=== PATIENT | female | born 1945 | race Caucasian/White ===

== ENCOUNTER → 2021-05-02 13:41 | Outpatient (CLI) | payer MEDICARE, SELFPAY ==
--- NOTE | ~2021-05-02 | MM_ITS ---
EXAMINATION: MM screening chang BI w moise HISTORY: Screening mammogram, family history of breast cancer in her mother and sister. TECHNIQUE: Craniocaudal and mediolateral oblique 3-D tomosynthesis images were obtained and synthetic 2-D images were generated. CAD analysis was submitted and interpreted. COMPARISON: No prior mammogram is available for comparison at this institution. BREAST PARENCHYMAL COMPOSITION: There are scattered areas of fibroglandular density. FINDINGS: There is no evidence of suspicious mass, calcification, or architectural distortion to sugg est malignancy in either breast. IMPRESSION: 1. No mammographic evidence of malignancy. 2. Recommend routine screening mammography in one year. BI-RADS Category 1: Negative Reviewed, dictated and finalized at location A.
== END ==
PROVIDERS: PCP Registered Nurse; Visit Provider Registered Nurse
DX: Z12.31 Encounter for screening mammogram for malignant neoplasm of breast (principal)
CPT/HCPCS: 77063; 77067

== ENCOUNTER 2021-07-11 02:53 | Day surgery (SDC) | payer MEDICARE, SELFPAY ==
[2021-07-08 17:48] VITALS: BMI 30.8
[2021-07-11] VITALS (9 sets, daily range): BP systolic 115–142; BP diastolic 59–75; PULSE 54–73; RESP 16–20; TEMP 36.2–36.3; O2SAT 90–97; BMI 30.7
--- NOTE | 2021-07-11 08:35 | SUR.PREOP ---
ARRIVES VIA WC W/ SON AT SIDE TO [facility] 4 FOR SCHEDULED LHC W/ DR. NÚÑEZ. A&OX3, DENIES PAIN OR SOB. HAS HX OF POLIO; LEFT LEG SMALLER THAN RIGHT LEG. STATES DOES USE CANE OR WALKER WHEN WALKING LONG DISTANCES, BUT CAN WALK SHORT DISTANCE WITHOUT AIDE. ORIENTED TO ROOM, PLAN OF CARE, PROCEDURE. IV STARTED, LABS SENT, VS OBTAINED, CONSENT SIGNED, PULSES MARKED, SKIN PREPPED. WILL CONTINUE TO MONITOR.
[2021-07-11 09:13] LABS: Basophils Absolute Auto 0.1 K/mm3 (0.0-0.1); Basophils Percent Auto 0.6 % (0.2-1.2); Eosinophils Absolute Auto 0.1 K/mm3 (0-0.3); Eosinophils Percent Auto 0.7 % (0-4.4); Hematocrit 37.8 % (37.0-47.0); Hemoglobin 12.6 g/dL (12.0-15.0); Immature Granulocyte Absolute 0.03 K/mm3 (0.00-0.031); Immature Granulocyte Percent A 0.4 % (0-0.5); Lymphocytes Absolute Auto 2.89 K/mm3 (0.9-3.2); Lymphocytes Percent Auto 34.5 % (18.3-44.2); Mean Corpuscular HGB Conc 33.3 g/dl (32-36); Mean Corpuscular Hemoglobin 33.2 pg (26-34); Mean Corpuscular Volume 99.5 fl (80-100); Mean Platelet Volume 10.7 fl (7.4-10.4); Monocytes Absolute Auto 0.5 K/mm3 (0.1-0.6); Monocytes Percent Auto 6.4 % (2.6-8.5); Neutrophils Absolute Auto 4.8 K/mm3 (1.3-6.7); Neutrophils Percent Auto 57.4 % (45.5-73.1); Platelet Count Result 251 k/mm3 (150-375); Red Cell Distribution Width 13.1 % (11.5-14.5); White Blood Count 8.4 K/mm3 (4.5-10.0)
[2021-07-11 09:17] LABS: Anion Gap 8 mmol/L (8-16); Blood Urea Nitrogen 22 mg/dL (7-17); Calcium 9.1 mg/dL (8.4-10.2); Carbon Dioxide 25 mmol/L (22-30); Chloride 103 mmol/L (98-107); Estimated CRCL calculation 107 ml/min; Estimated Glomerular Filt Rate > 60; Glucose 109 mg/dL (65-110); Potassium 3.8 mmol/L (3.4-5.0); Sodium 136 mmol/L (137-145)
--- NOTE | 2021-07-11 11:37 | WPDMODSED ---
Moderate Sedation Note-Pt Data Patient Data Diagnosis: coronary artery disease with previous PCI to RCA Present Complaint: intermittent chest pain Procedure to be performed/Plan: follow-up left heart catheterization Allergies Allergy/AdvReac Type Severity Reaction Status Date / Time No Known Allergies Allergy Verified 07/08/21 16:55 Home Medications Medication Instructions Recorded Confirmed Type Caltrate 600 plus D 2 tablet PO DAILY 07/08/21 07/08/21 History acetaminophen 1,000 mg PO Q12H 07/08/21 07/08/21 History alendronate 70 mg PO WEEKLY 07/08/21 07/08/21 History aspirin [Ecotrin Low Strength] 81 mg PO DAILY 07/08/21 07/11/21 History cholecalciferol (vitamin D3) 50 mcg PO DAILY 07/08/21 07/08/21 History docusate sodium [Colace] 100 mg PO HS 07/08/21 07/08/21 History ezetimibe 10 mg PO DAILY 07/08/21 07/08/21 History fesoterodine [Toviaz] 4 mg PO HS 07/08/21 07/08/21 History fluticasone propionate 2 spray INTRANASAL DAILY 07/08/21 07/08/21 History lojszeqfywo-uuosa-bxr-vit C-Mn 1 tablet PO BID 07/08/21 07/08/21 History ibuprofen 400 mg PO Q12H 07/08/21 07/08/21 History isosorbide mononitrate 30 mg PO HS 07/08/21 07/08/21 History loratadine [Allergy Relief 10 mg PO DAILY 07/08/21 07/08/21 History (loratadine)] magnesium 200 mg PO BID 07/08/21 07/08/21 History metoprolol succinate [Toprol XL] 25 mg PO DAILY 07/08/21 07/11/21 History multivitamin with minerals [All 1 tablet PO DAILY 07/08/21 07/08/21 History Purpose Multivitamin-Min] potassium chloride [Micro-K 10] 10 meq PO BID 07/08/21 07/08/21 History simvastatin [Zocor] 40 mg PO HS 07/08/21 07/08/21 History sumatriptan succinate [Imitrex] 100 mg PO Q2H PRN MDD 200MG 07/08/21 07/08/21 History Current Medications: Active Medications Sodium Chloride (Normal Saline Iv) 500 mls @ 100 mls/hr IV CONT .Q5H [facility] Sedation/Anesthesia: No previous sedation/anesthesia problems (including family history). [facility] Social History Social History Smoking status: Never smoker Alcohol intake: never Substance use: never Substance use type: does not use Living arrangements: assisted living Additional living arrangements comments: LIVES W/ AT [facility] Gender identity (if verbalized by the patient): Female Spiritual care concerns: No Mod Sed Physical Exam Physical Exam Pre Procedural Exam: Normal: Throat, Airway, Lungs, Heart Size, Heart Rate, Heart Rhythm, Neuro Exam and Extremities and Variation: Appearance ( obese white female no distress) Hours since solid foods: 12 Hours since liquid intake: 12 Mallampati Classification: class II Internal Medicine - PN: Obj Da Vital Signs Vital Signs: Vital Signs - 24 hr 07/11/21 08:45 Temperature 36.2 C L Pulse Rate 73 Respiratory Rate 20 Blood Pressure 130/71 Pulse Oximetry 95 Meds/Results Medications: Active Medications Generic Name Dose Route Start Last Admin Trade Name Freq PRN Reason Stop Dose Admin Sodium Chloride 500 mls @ 100 mls/hr 07/11/21 08:30 Normal Saline Iv IV CONT .Q5H [facility] Labs CBC & Chem 7: 07/11/21 08:55 07/11/21 08:55 Labs: Laboratory Results - last 24 hr 07/11/21 07/11/21 08:55 08:55 WBC 8.4 RBC 3.80 L Hgb 12.6 Hct 37.8 MCV 99.5 MCH 33.2 MCHC 33.3 RDW 13.1 Plt Count 251 MPV 10.7 H Immature Gran % (Auto) 0.4 Neut % (Auto) 57.4 Lymph % (Auto) 34.5 Barry % (Auto) 6.4 Eos % (Auto) 0.7 Baso % (Auto) 0.6 Lymph # (Auto) 2.89 Barry # (Auto) 0.5 Eos # (Auto) 0.1 Baso # (Auto) 0.1 Abs Immat Gran (auto) 0.03 Absolute Neuts (auto) 4.8 Absolute Nucleated RBC 0.0 Nucleated RBC % 0.0 Sodium 136 L Potassium 3.8 Chloride 103 Carbon Dioxide 25 Anion Gap 8 BUN 22 H Creatinine 0.40 L Estim Creat Clear Calc 107 Estimated GFR > 60 Glucose 109 Calcium 9.1 ASA Classification/Sedation ASA Classification/Sedation ASA Class: II Emergent:
--- NOTE | 2021-07-11 12:04 | P.PCNCC_ITS ---
Cardiac Cath Procedure Note Date of procedure:: 07/11/21 Performing physician:: Rusty Simmons MD Indication:: coronary artery disease with previous RCA stent recurrent chest pain Brief clinical history:: this is a 76-year-old woman who underwent PCI with stenting of her right coronary artery several years ago at another hospital. Her recreational assistant has referred her for a follow-up angiogram because of recurrent chest pain suspicious for ischemia. Procedure Procedure performed:: Left ventriculography coronary angiography Angio-Seal to right femoral artery Sedation/Medication given:: fentanyl 50 mg Versed 2 mg case start time 11:40 a.m. case end time 12:01 p.m. sedation provided by Romian Corado RN, trained observer Access site:: right femoral artery Estimated blood loss:: 10-15 cc Procedure note:: patient was brought to the cardiac catheterization lab in the postabsorptive state the right femoral triangle was prepared and draped in the usual fashion. 1% lidocaine was infiltrated into the puncture site. The femoral artery was punctured and no using the modified Seldinger technique a 5 [place] vascular sheath was placed. After this left heart catheterization was carried out I used a 5 [place] Citizen angled pigtail catheter to inject the left ventriculogram in the ORTIZ projection and to assess left-sided hemodynamics. Following this pigtail catheter was removed and a 5 [place] FL4 catheter was used to engage inject the left coronary artery in multiple projections. After this I used a 5 [place] Citizen JR4 catheter to engage inject the right coronary artery. The cineangiograms were the case was terminated. An angiogram was done of the femoral artery through the sheath after an Angio-Seal device was deployed with a good hemostatic result. There were no procedural complications of the procedure was well tolerated. Findings:: Hemodynamics: Central aortic pressure was 142 over 66 left ventricle 142/0 end-diastolic 16 there is no gradient on pullback across the aortic valve. Left ventricle: The LV is normal in size all segments contract well the global ejection fraction of visually estimated to be 60-65%. The left main coronary artery is nicely patent the LAD is a medium caliber artery extending down to the apex the LAD is smooth and angiographically unremarkable the circumflex is a medium caliber vessel giving rise to the marginal branch of circumflex is angiographically smooth and normal in appearance right coronary artery is medium in caliber and dominant to the posterior circulation there is visible stent material in the proximal segment of the RCA. The entire vessel is widely patent with good flow there is no loss of lumen in the stent this segment and no evidence of atherosclerosis in the remainder of the vessel. Conclusion:: 1. Coronary artery disease with previous RCA stent which appears to be nicely patent patient is nicely revascularized 2. current symptoms are not related to myocardial ischemia based on these findings 3. normal left ventricular systolic function Rusty Simmons MD FACC
--- NOTE | 2021-07-11 16:20 | SUR.PHASEII ---
DISCHARGE INSTRUCTIONS GIVEN AND REVIEWED W/ PT. QUESTIONS ANSWERED. VOICES UNDERSTANDING OF ALL. R. GROIN SITE REMAINS SOFT, NONTENDER. NO BLEEDING OR HEMATOMA NOTED. GAUZE AND TEGADERM DRESSING C/D/I. R. PEDAL PULSE PALP STRONG. DISCHARGED HOME, OUT VIA WC TO SON'S WAITING CAR, WITH ALL PERSONAL BELONGINGS AND DISCHARGE PACKET. VOICES NO C/O. NO DISTRESS NOTED.
== END 2021-07-11 16:20 | disposition home or self-care (01) ==
PROVIDERS: PCP Registered Nurse; Visit Provider Specialist
PROC: 4A023N7 Measurement of Cardiac Sampling and Pressure, Left Heart, Percutaneous Approach (ICD-10-PCS; CPT 93452; principal; 2021-07-11 10:00)
DX: I25.118 Atherosclerotic heart disease of native coronary artery with other forms of angina pectoris (principal); I10 Essential (primary) hypertension; E78.5 Hyperlipidemia, unspecified; G14 Postpolio syndrome; Z95.5 Presence of coronary angioplasty implant and graft
CPT/HCPCS: 36415; 80048; 85025; 93458; C1760; C1887; C1894; G0269; J1644; J2250; J3010; J7040

== ENCOUNTER → 2022-05-05 10:02 | Outpatient (CLI) | payer MEDICARE, SELFPAY ==
--- NOTE | ~2022-05-05 | DEXA_ITS ---
Bone Density Report Name: DINESH MENDOZA Age: 77 Sex: Female Ethnicity: White Date of : 1945 Indication: postmenopausal; screening for osteoporosis; parental hip fracture; height loss; Referring Provider: Kathleen, Janessa Study: Bone densitometry was performed. Exam Date: May 05, 2022 Accession number: [id number] Bone Density: Region BMD T-score Z-score Classification AP Spine (L1-L4) 1.104 0.5 2.9 Normal Femoral Neck (Left) 0.657 -1.7 0.4 Osteopenia Total Hip (Left) 0.743 -1.6 0.1 Osteopenia Femoral Neck (Right) 0.727 -1.1 1.0 Osteopenia Total Hip (Right) 0.859 -0.7 1.1 Normal Total Hip Mean 0.801 -1.2 0.6 Osteopenia World Health Organization criteria for BMD impression classify patients as: Normal (T-score at or above -1.0), Osteopenia (T-score between -1.0 and -2.5), or Osteoporosis (T-score at or below -2.5). 10-year Fracture Risk: FRAX not reported because: Treated for osteoporosis Clinical Information Provided by Patient: Parent has had a hip fracture Is being treated for osteoporosis Has used the following medications: Fosamax (i.e. alendronate), Vitamin D, Calcium, MTV Patient maximum height was 66.2 Menopause Age: 57 No regular weight bearing exercise Drinks caffeinated beverages Onset of menses at age 14 Number of children 2 Impression: The patient has low bone mass, based on the Left Femoral Neck T-score. The patient has risk factors, including: parental hip fracture. Discussion: It is important to ask patients whether they are taking their medications and to encourage continued and appropriate compliance with their osteoporosis therapies to reduce fracture risk. It is also important to review their risk factors and encourage appropriate calcium and vitamin D intakes, exercise, fall prevention and other lifestyle measures. Follow-Up: Consider a repeat BMD and Vertebral Fracture Assessment (VFA) exam in 2 years or sooner if medically necessary, to reassess this patient's status. Reported by: ELVER on 05/05/2022 10:58:00 AM. Reviewed, dictated and finalized at location AChelsy ULRICH
--- NOTE | ~2022-05-05 | MM_ITS ---
EXAMINATION: MM screening chang BI w moise HISTORY: Screening TECHNIQUE: Craniocaudal and mediolateral oblique 3-D tomosynthesis images were obtained and synthetic 2-D images were generated. CAD analysis was submitted and interpreted. COMPARISON: 05/02/2021 BREAST PARENCHYMAL COMPOSITION: There are scattered areas of fibroglandular density. FINDINGS: There is no evidence of suspicious mass, calcification, or architectural distortion to sugg est malignancy in either breast. There has been no suspicious interval change. IMPRESSION: 1. No mammographic evidence of malignancy. 2. Recommend routine screening mammography in one year. BI-RADS Category 1: Negative Reviewed, dictated and finalized at location A.
== END ==
PROVIDERS: PCP Registered Nurse; Visit Provider Registered Nurse
DX: Z12.31 Encounter for screening mammogram for malignant neoplasm of breast (principal); M81.0 Age-related osteoporosis without current pathological fracture; M85.852 Other specified disorders of bone density and structure, left thigh; M85.851 Other specified disorders of bone density and structure, right thigh
CPT/HCPCS: 77063; 77067; 77080

== ENCOUNTER 2024-02-15 11:47 | Observation (INO) | payer OTHER, SELFPAY ==
[2024-02-15] VITALS (11 sets, daily range): BP systolic 126–169; BP diastolic 53–71; PULSE 56–78; RESP 16–20; TEMP 36.5–37.2; O2SAT 93–98; BMI 37.4
--- NOTE | ~2024-02-15 | XR_ITS ---
EXAMINATION: XR chest 2V DATE: 02/15/2024 13:04 INDICATION: Chest pain. TECHNIQUE: Frontal and lateral views of the chest were obtained. COMPARISON: None. FINDINGS: There is mild atelectasis at the lung bases. No pleural effusion or pneumothorax. The heart size is normal. There are surgical clips in the abdomen. IMPRESSION: 1. Mild atelectasis at the lung bases. Reviewed, dictated and finalized at location A.
--- NOTE | ~2024-02-15 | US_ITS ---
EXAMINATION: US venous doppler [facility] DATE: 02/15/2024 16:19 INDICATION: leg swelling . TECHNIQUE: Grayscale images without and with compression and Doppler images of the left lower extremi ty veins were obtained. COMPARISON: None FINDINGS: The left common femoral vein, profunda (deep) femoral vein, femoral vein, popliteal vein, peroneal v ein, posterior tibial veins, gastrocnemius vein, and greater saphenous vein are patent. IMPRESSION: Patent left lower extremity veins. No evidence of deep venous thrombosis. Reviewed, dictated and finalized at location K.
--- NOTE | 2024-02-15 11:48 | ECG_ITS ---
Measurements Intervals [place] Rate: 57 P: 13 ID: [id number] QRS: 0 QRSD: 95 T: 64 QT: 391 QTc: 381 Interpretive Statements SINUS BRADYCARDIA NONSPECIFIC ST & T-WAVE ABNORMALITY- HIGH LATERAL LEADS BORDERLINE ECG NO PREVIOUS ECG AVAILABLE FOR COMPARISON Electronically Signed On 02-15-2024 12:45:17 CDT by Javy Muller D.O.
--- NOTE | 2024-02-15 12:35 | ED.CHESTPAIN ---
HPI - Chest Pain General Chief Complaint: Chest Pain Stated Complaint: chest pains Time Seen by Provider: 02/15/24 11:56 History of Present Illness HPI narrative: 78-year-old female presenting to the emergency department for evaluation of chest pain that radiated to her neck and back. Patient states she was at rest when the pain started. Pain lasted approximately 30 minutes. Patient did take 2 nitro and the symptoms resolved. Patient does have history of coronary disease and has to stents with the most recent stent being placed in 2016 patient states her most recent cardiac catheterization was in 2020. Patient does have some swelling of her lower extremity worse on the left and she states this is not new for her. Related Data Home Medications Medication Instructions Recorded Confirmed Caltrate 600 plus D 2 tablet PO DAILY 07/08/21 07/08/21 acetaminophen 500 mg tablet 1,000 mg PO Q12H 07/08/21 07/08/21 alendronate 70 mg tablet 70 mg PO WEEKLY 07/08/21 07/08/21 aspirin 81 mg tablet,delayed 81 mg PO DAILY 07/08/21 07/11/21 release (Ecotrin Low Strength) cholecalciferol (vitamin D3) 50 50 mcg PO DAILY 07/08/21 07/08/21 mcg (2,000 unit) tablet docusate sodium 100 mg capsule 100 mg PO HS 07/08/21 07/08/21 (Colace) ezetimibe 10 mg tablet 10 mg PO DAILY 07/08/21 07/08/21 fesoterodine 4 mg tablet,extended 4 mg PO HS 07/08/21 07/08/21 release 24 hr (Toviaz) fluticasone propionate 50 2 spray intranasal DAILY 07/08/21 07/08/21 mcg/actuation nasal spray,suspension dzmpedvruzu-gelpc-ywi-vit C-Mn 500 1 tablet PO BID 07/08/21 07/08/21 mg-400 mg-166.6 mg tablet ibuprofen 400 mg tablet 400 mg PO Q12H 07/08/21 07/08/21 isosorbide mononitrate 30 mg 30 mg PO HS 07/08/21 07/08/21 tablet,extended release 24 hr loratadine 10 mg tablet (Allergy 10 mg PO DAILY 07/08/21 07/08/21 Relief (loratadine)) magnesium 200 mg tablet 200 mg PO BID 07/08/21 07/08/21 metoprolol succinate 25 mg 25 mg PO DAILY 07/08/21 07/11/21 tablet,extended release 24 hr (Toprol XL) multivitamin with minerals 1 tablet PO DAILY 07/08/21 07/08/21 potassium chloride 10 mEq 10 meq PO BID 07/08/21 07/08/21 capsule,extended release simvastatin 40 mg tablet (Zocor) 40 mg PO HS 07/08/21 07/08/21 sumatriptan succinate 100 mg 100 mg PO Q2H PRN Migraine Headache 07/08/21 07/08/21 tablet (Imitrex) Allergies Allergy/AdvReac Type Severity Reaction Status Date / Time No Known Allergies Allergy Verified 07/08/21 16:55 Review of Systems Review of Systems: All systems reviewed & are unremarkable except as noted in HPI and below PMFSH Social History Social History Smoking status: Never smoker Alcohol intake: never Substance use: never Substance use type: does not use Living arrangements: assisted living Additional living arrangements comments: LIVES W/ AT [facility] Gender identity (if verbalized by the patient): Female Spiritual care concerns: No Exam Narrative: APPEARANCE: Well appearing, no pain, no distress, well-nourished. HEAD: normocephalic, atraumatic. EYES: PERRLA/EOMI, conjunctivae clear. NOSE: Normal no drainage EARS:TMS clear with good light reflex. THROAT: Pharynx clear, no exudate. NECK: Supple. No adenopathy, no masses. RESPIRATORY: Airway patent, respirations nonlabored. Clear to auscultation bilaterally, no rales, rhonchi, wheezing. CARDIOVASCULAR: Regular rate and rhythm without murmurs rubs or gallops. ABDOMINAL: Soft, nontender, nondistended, normal bowel sounds MUSCULOSKELETAL: Moves all extremities. Strength/ROM intact, No edema, No calf tenderness. NEURO: Alert. Cranial nerves II through XII intact. SKIN: Warm, dry. Normal Color Course Course Emergency Course: Patient was admitted for further cardiac evaluation. Vital Signs Vital signs: Vital Signs Temperature 97.7 F 02/15/24 11:51 Pulse Rate 64 02/15/24 11:51 Respiratory Rate 16 02/15/24 11:51 Blood Pressu
[2024-02-15 12:39] LABS: Alanine Aminotransferase 26 U/L (6-35); Albumin Level 3.9 g/dL (3.5-5.1); Alkaline Phosphatase 40 U/L (38-126); Anion Gap 4 mmol/L (4-12); Aspartate Amino Transferase 24 U/L (14-36); Bilirubin,Total 0.4 mg/dL (0.2-1.3); Blood Urea Nitrogen 21 mg/dL (7-17); Carbon Dioxide 28 mmol/L (22-30); Chloride 109 mmol/L (98-107); Estimated CRCL calculation 88 ml/min; Estimated Glomerular Filt Rate > 60; Glucose 106 mg/dL (65-110); Lipase 71 U/L (23-300); Potassium 3.8 mmol/L (3.4-5.0); Sodium 141 mmol/L (137-145)
[2024-02-15 12:47] LABS: INR 1.1; Prothrombin Time 14.3 Seconds (11.1-14.7)
[2024-02-15 12:48] LABS: Partial Thromboplastin Time 31.1 Seconds (22.3-36.8)
[2024-02-15 12:50] LABS: Troponin I < 0.012 ng/mL (0.000-0.034)
[2024-02-15 12:59] LABS: Basophils Percent Auto 0.5 % (0.2-1.2); Eosinophils Absolute Auto 0.1 K/mm3 (0-0.3); Eosinophils Percent Auto 1.7 % (0-4.4); Hematocrit 40.2 % (37.0-47.0); Hemoglobin 13.1 g/dL (12.0-15.0); Immature Granulocyte Absolute 0.01 K/mm3 (0.00-0.031); Immature Granulocyte Percent A 0.1 % (0-0.5); Lymphocytes Absolute Auto 2.76 K/mm3 (0.9-3.2); Lymphocytes Percent Auto 35.6 % (18.3-44.2); Mean Corpuscular HGB Conc 32.6 g/dl (32-36); Mean Corpuscular Hemoglobin 32.8 pg (26-34); Mean Corpuscular Volume 100.5 fl (80-100); Mean Platelet Volume 11.8 fl (7.4-10.4); Monocytes Absolute Auto 0.6 K/mm3 (0.1-0.6); Monocytes Percent Auto 7.9 % (2.6-8.5); Neutrophils Absolute Auto 4.2 K/mm3 (1.3-6.7); Neutrophils Percent Auto 54.2 % (45.5-73.1); Platelet Count Result 230 k/mm3 (150-375); Red Cell Distribution Width 12.6 % (11.5-14.5); White Blood Count 7.8 K/mm3 (4.5-10.0)
--- NOTE | 2024-02-15 15:16 | ECG_ITS ---
Measurements Intervals [place] Rate: 59 P: 54 PA: 135 QRS: 8 QRSD: 99 T: 79 QT: 398 QTc: 396 Interpretive Statements SINUS BRADYCARDIA CONSIDER INFERIOR INFARCT, AGE INDETERMINATE NONSPECIFIC ST & T-WAVE ABNORMALITY- HIGH LATERAL LEADS ABNORMAL ECG COMPARED TO ECG 02/15/2024 12:19:41 NO SIGNIFICANT CHANGES Electronically Signed On 02-15-2024 15:19:45 CDT by Javy Muller D.O.
[2024-02-15 15:38] LABS: Troponin I < 0.012 ng/mL (0.000-0.034)
--- NOTE | 2024-02-15 18:39 | ADMGEN ---
This patient, Deborah Fay, was admitted to IMU Room 213-01. Patient/family oriented to hospital policies and general routines including ID bracelet, bed and alarms, visiting hours, pain management, procedures, bathroom and other care routines, personal items, smoking policy, room service/diet, and visiting hours. Information on how to activate the Rapid Response Team has been discussed. Patient/Family are encouraged to report perceived risks to care and to ask questions if they do not understand what they are told or what they should do.
[2024-02-15 18:42] LABS: Troponin I < 0.012 ng/mL (0.000-0.034)
--- NOTE | 2024-02-15 23:12 | PM.IMHP ---
H&P: HPI History of Present Illness Date/Time: 02/15/24 23:12 Chief Complaint: Chest Pain Narrative: 78 y/o F presents here with chest pain with PMH of migraines, CAD, cardiac stent x1, HLD, HTN, kidney stones arthritis, osteoporosis, polio, and cancer. Patient presents here from [facility] via private vehicle for further evaluation of chest pain. Patient developed chest pain around 1030 today with sudden onset. Patient was at rest watching TV when it began. Described chest pain as sharp, with radiation into her bilateral neck and slightly into jaw. Pain continued to increase in severity. No associated sense of doom, diaphoresis, nausea, indigestion, fatigue, shortness of breath, palpitations, epigastric pain or abdominal pain. Pain lasted for approximately 30 mins and was relieved with 2 SL nitro. No recurrent chest pain since arrival. Patient has cardiac hx - CAD, cardiac stents x1 (2016). Most recent cardiac catheterization was in 2020 which showed RCA patent and nicely revascularized, normal LV systolic function, otherwise unremarkable. Patient has chronic LLE swelling, has been ongoing for years and is no worse than her typical baseline. No recent illnesses. Was going to establish with cardiology here, however had to cancel appt due to insurance reasons. Initial VS at presentation: 97.7? F, HR 64, RR 16, 126/66, and 96% on RA. ED workup showed: No leukocytosis, no anemia, and creatinine 0.5. CXR showed mild atelectasis at the lung bases. U/S of LE showed no DVT. Review of Systems Review of Systems: All systems reviewed & are unremarkable except as noted in HPI and below [facility] Past Medical History Medical History Ambulates without assistive device gait disturbance secondary to polio. 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 No has plate and jaw. HLD (hyperlipidemia) HTN (hypertension) Kidney stones Migraines Osteoporosis Polio Shingles Surgical History Surgical History History of cataract removal with insertion of prosthetic lens History of cholecystectomy History of heart artery stent 2016, RCA History of right knee joint replacement 2004 Social History Social History Smoking status: Never smoker Alcohol intake: never Substance use: never Substance use type: does not use Do You Feel Safe in your Home?: Yes Lack of Transportation: No Lack of Food: Never True Current Housing: I Have Housing Concerned About Future Housing: No Difficulty Paying Gas/Electric Bills: No Difficulty Paying for Meds: No Currently Unemployed: No Education: Decline to Answer Difficulty w/ Childcare or Family Care: No Living arrangements: assisted living Additional living arrangements comments: LIVES W/ AT [facility] Gender identity (if verbalized by the patient): Female Spiritual care concerns: No Meds Home Medications and Allergies Home Medications Medication Instructions Recorded Confirmed Type Caltrate 600 plus D 1 tablet PO BID 07/08/21 02/15/24 History acetaminophen 500 mg tablet 1,000 mg PO Q12H 07/08/21 02/15/24 History alendronate 70 mg tablet 70 mg PO WEEKLY 07/08/21 02/15/24 History aspirin 81 mg tablet,delayed 81 mg PO DAILY 07/08/21 02/15/24 History release (Ecotrin Low Strength) docusate sodium 100 mg capsule 100 mg PO HS 07/08/21 02/15/24 History (Colace) ezetimibe 10 mg tablet 10 mg PO DAILY 07/08/21 02/15/24 History fluticasone propionate 50 2 spray intranasal DAILY 07/08/21 02/15/24 History mcg/actuation nasal spray,suspension lgotezpovgn-nykvt-sad-vit C-Mn 500 2 tablet PO DAILY 07/08/21 02/15/24 History mg-400 mg-166.6 mg tablet ibuprofen 400 mg tablet 400 mg PO Q12H PRN Pain 07/08/21 02/15/24 Histor
[2024-02-16] VITALS (9 sets, daily range): BP systolic 141–146; BP diastolic 63–86; PULSE 51–117; RESP 16–20; TEMP 36.2–36.5; O2SAT 93–99
[2024-02-16 04:42] LABS: Hematocrit 39.5 % (37.0-47.0); Hemoglobin 12.9 g/dL (12.0-15.0); Mean Corpuscular HGB Conc 32.7 g/dl (32-36); Mean Corpuscular Hemoglobin 32.8 pg (26-34); Mean Corpuscular Volume 100.5 fl (80-100); Mean Platelet Volume 11.1 fl (7.4-10.4); Platelet Count Result 221 k/mm3 (150-375); Red Blood Count 3.93 M/mm3 (4.2-5.4); Red Cell Distribution Width 12.6 % (11.5-14.5); White Blood Count 7.7 K/mm3 (4.5-10.0)
[2024-02-16 04:52] LABS: Anion Gap 3 mmol/L (4-12); Blood Urea Nitrogen 19 mg/dL (7-17); Calcium 8.4 mg/dL (8.4-10.2); Carbon Dioxide 26 mmol/L (22-30); Chloride 113 mmol/L (98-107); Estimated CRCL calculation 103 ml/min; Estimated Glomerular Filt Rate > 60; Glucose 105 mg/dL (65-110); Potassium 3.5 mmol/L (3.4-5.0); Sodium 142 mmol/L (137-145)
[2024-02-16] MEDS: THERAPEUTIC MULTIVITAMINS/MINERALS TAB (*BKC) 1 TABLET PO (08:52)
[2024-02-16] MEDS: POTASSIUM CHLORIDE 10 MEQ ER TABLET PO (08:52)
[2024-02-16] MEDS: EZETIMIBE 10 MG TABLET PO (08:52)
[2024-02-16] MEDS: ACETAMINOPHEN 500 MG TABLET 1000 MG PO (08:52)
[2024-02-16] MEDS: oxyBUTYnin CHLORIDE 5 MG TABLET PO (08:52)
[2024-02-16] MEDS: LORATADINE 10 MG TABLET PO (08:52)
[2024-02-16] MEDS: ASPIRIN 81 MG CHEWABLE TABLET PO (08:52)
[2024-02-16] MEDS: METOPROLOL SUCCINATE EXT REL 25 MG TABCR PO (08:52)
[2024-02-16] MEDS: FLUTICASONE PROPIONATE 0.05% NA SPR 16 GM BTL (*BKC) 2 SPRAY NASAL (08:53)
[2024-02-16 10:04] LABS: Folic Acid > 20.0 ng/mL (2.76->20)
--- NOTE | 2024-02-16 11:03 | PM.CNCAR ---
Assessment and Plan Assessment and plan (1) Chest pain: Code(s): R07.9 - Chest pain, unspecified Status: Acute Assessment and Plan: Somewhat atypical yet possible anginal equivalent persistent for approximately 30 minutes aching at rest somewhat sharp in nature but radiating to the neck and back eventually resolving with sublingual nitroglycerin as reported. She has ruled out for myocardial infarction negative serial cardiac enzymes and no acute ischemic ECG changes. She is at her baseline he feels well. She has a known history of CAD with remote stenting without any subsequent issues scheduled to see Dr. Simmons April 24. I have encouraged her to ambulate this morning if no recurrent symptoms and feeling while she may be discharged home today to follow up as scheduled as an outpatient. I have encouraged her contact the office Sunday morning to set up for Lexiscan nuclear stress test prior to her arrival for her visit in April with recommendation to follow. Patient verbalized understanding and agreed. Advised should she have recurrence of severe and unrelenting chest discomfort to present to the nearest ER via EMS once again. We discussed alternative explanation such as esophageal spasm he had given her history and risk factors we will presume symptoms more likely ischemic in nature until proven otherwise. At this time, patient stable for discharge home from a cardiac perspective per discussion as above. Disposition per hospitalist service. No indication for invasive angiography at this time. Patient verbalizes understanding and agrees. I recommend prescription upon discharge for sublingual nitroglycerin. (2) CAD (coronary artery disease): Code(s): I25.10 - Atherosclerotic heart disease of samish coronary artery without angina pectoris Status: Acute Assessment and Plan: As above, history of remote stent to RCA patent on [facility] 2020. Negative serial enzymes and ECG. Patient stable. Continue aspirin 81 mg daily, Zetia 10 mg daily, Toprol XL 25 mg daily, simvastatin 40 mg at bedtime. Resting heart rate is in the 50 to 60s. Unable to tolerate up titration of beta-ramon therapy for additional antianginal benefit. Document heart rate of 117 in the system is in accurate and there is no documented tachycardia on review of telemetry. (3) HTN (hypertension): Code(s): I10 - Essential (primary) hypertension Status: Acute Assessment and Plan: BP elevated but reasonable at this time. If BP further elevated consider addition of low-dose ARB losartan 25 mg daily. (4) HLD (hyperlipidemia): Code(s): E78.5 - Hyperlipidemia, unspecified Status: Acute Assessment and Plan: Continue simvastatin 40 mg at bedtime. Goal LDL less than 70. History of Present Illness History of Present Illness Consult date/time: Date of service: 02/16/24 11:03 Requesting physician: Sofía Stevens APRN Consult reason: chest pain Reason For Visit: chest pain Narrative: Patient is a very pleasant 78-year-old female with a past medical history significant for CAD with remote stenting of the RCA with most recent cardiac catheterization 2020 which revealed a patent stent in the RCA, hypertension, hyperlipidemia who presented the emergency department complaints of chest pain. Patient states proximally in hour and a half after eating breakfast she was resting watching television when she had sudden onset of sharp chest pain upper sternal region radiating to her neck and upper back without associated nausea, shortness of breath, palpitations or diaphoresis. Patient states given persistence of symptoms she went to the nurse's station and received 2 nitroglycerin sublingual which did not prove her symptoms then received a 2nd with ventral resolution of her symptoms after approximately 30 minutes. There has been no recurrence whatsoever subsequent. Patient states she had similar episode in which she awoke a
--- NOTE | 2024-02-16 13:15 | PM.DS ---
DS: Admitting Diagnosis Discharge Date 02/16/24 Admitting Diagnosis Chest pain DS: Discharge Diagnosis Discharge Diagnosis (1) Chest pain: Code(s): R07.9 - Chest pain, unspecified Status: Acute (2) HTN (hypertension): Code(s): I10 - Essential (primary) hypertension Status: Acute DS: Summary Hospital Course Reason for hospitalization: 78yo female with migraines, CAD s/p cardiac stent x1, HLD, HTN and polio here for chest pain. Please see H&P for details Hospital Course: Patient was hemodynamically stable on admission. No leukocytosis, no anemia, and creatinine 0.5.? CXR showed mild atelectasis at the lung bases.? U/S of LE showed no DVT. EKG showing sinus bradycardia with rate of 57, nonspecific ST and T-wave abnormality high lateral leads, borderline EKG.? No significant change on repeat. Troponin: <0.012 x3. Heart Score 5. Cardiology consulted. Plan for discharge home with follow-up outpatient stress test. Patient is agreeable with this plan. No further chest pain. No SOB or GORMAN. She is up walking in the halls with walker. Patient overall did well and was able to be discharged home on 02/16/24. Status at Discharge Cognitive/behavioral status at discharge: stable Time Spent with Patient Time attestation: Total time spent providing and/or coordinating discharge services: 32 minutes Time spent: Less than 30 minutes Specific discharge activities: discussed with patietn and cardiology Exam Narrative: AF 97.7 146/63 55 16 99% ra Gen - NARD Chest - CTA bilaterally, nml RR CV - RRR S1/S2 Abd - Soft, NT/ND, Positive BS Ext - trace LLE pedal edema (chronic from polio) Psych - Nml mood and affect Skin - Warm and dry DS: Data Data Completed and Pending Labs on day of discharge: Labs from last 24 hours 02/16/24 02/15/24 02/15/24 04:25 17:57 14:52 WBC 7.7 RBC 3.93 L Hgb 12.9 Hct 39.5 MCV 100.5 H MCH 32.8 MCHC 32.7 RDW 12.6 Plt Count 221 MPV 11.1 H Sodium 142 Potassium 3.5 Chloride 113 H Carbon Dioxide 26 Anion Gap 3 L BUN 19 H Creatinine 0.40 L Estim Creat Clear Calc 103 Estimated GFR > 60 Glucose 105 Calcium 8.4 Troponin I < 0.012 < 0.012 Vitamin B12 738.0 Folate > 20.0 H Discharge Plan Discharge Attending physician on discharge: Duran Finnegan Consulting providers: Rusty Simmons Discharging Clinician: Duran Finnegan Anticipated Discharge Date/Time: 02/16/24 13:22 Patient Disposition: NH Fpc/Asst Living Activity: as tolerated Diet: heart healthy Discharge Instructions: Take precautions to avoid falls. Rise slowly from a lying or sitting position. Pause before standing or walking. Contact your doctor or call 911 and come to the Emergency Room if you have recurrent chest pain or other worrisome symptoms. Avoid NSAIDs (ibuprofen, naproxen, Aleve). Tylenol is safe to take. Follow-up with your primary care provider in 1-2 weeks. Please call for appointment. Follow-up with Medical Director/Head Team Physician at next scheduled appointment. Please contact the Cardiology office to schedule your stress test. Thank you for using [facility] for your health care needs. Patient Instructions: Antibiotic Form Stand Alone Forms: General Discharge Information Follow-up/Referrals: Rusty Simmons MD [Physician] - Keep Reg. Scheduled Appt. Kathleen,ESTUARDO Riddle [Primary Care Provider] - Call for Appointment Discharge Medications: Continued cetirizine 10 mg tablet 10 mg PO DAILY oxybutynin chloride 5 mg tablet 5 mg PO BID potassium chloride [Micro-K 10] 10 mEq Capsule, Extended Release 10 meq PO USEASDIRECTD Rx Instructions: take 1 tablet by mouth every other day sumatriptan succinate [Imitrex] 100 mg Tablet 100 mg PO Q2H MDD 200MG PRN (Reason: Migraine Headache) alendronate 70 mg tablet 70 mg PO WEEKLY
== END 2024-02-16 14:55 ==
LOC: ANHED 17:52 → ANHIMU 18:00
PROVIDERS: Emergency Medicine; Internal Medicine; Student in an Organized Health Care Education/Training Program; Admitting Provider Emergency Medicine; Emergency Provider Emergency Medicine; PCP Registered Nurse; Visit Provider Hospitalist
DX: R07.9 Chest pain, unspecified (principal); I10 Essential (primary) hypertension; I25.10 Atherosclerotic heart disease of native coronary artery without angina pectoris; Z95.5 Presence of coronary angioplasty implant and graft; R60.0 Localized edema; J98.11 Atelectasis; B91 Sequelae of poliomyelitis; R26.9 Unspecified abnormalities of gait and mobility; Z99.89 Dependence on other enabling machines and devices; R00.1 Bradycardia, unspecified; R94.31 Abnormal electrocardiogram [ECG] [EKG]; M81.0 Age-related osteoporosis without current pathological fracture; E78.5 Hyperlipidemia, unspecified; G43.909 Migraine, unspecified, not intractable, without status migrainosus; Z96.651 Presence of right artificial knee joint; Z87.442 Personal history of urinary calculi; Z85.818 Personal history of malignant neoplasm of other sites of lip, oral cavity, and pharynx; Z79.1 Long term (current) use of non-steroidal anti-inflammatories (NSAID); Z79.82 Long term (current) use of aspirin; Z79.899 Other long term (current) drug therapy
CPT/HCPCS: 36415; 71046; 80048; 80053; 82607; 82746; 83690; 84484; 85025; 85027; 85610; 85730; 93005; 93971; 99285; A9270; G0378

== ENCOUNTER 2024-06-17 08:52 | Outpatient (CLI) | payer OTHER, SELFPAY ==
--- NOTE | ~2024-06-17 | DEXA_ITS ---
Bone Density Report Name: DINESH MENDOZA Age: 79 Sex: Female Ethnicity: White Date of : 1945 Indication: postmenopausal; screening for osteoporosis; parental hip fracture; height loss; history of glucocorticoids; cancer; Referring Provider: MARTIN, LAMONT Krause Study: Bone densitometry was performed. Exam Date: June 17, 2024 Accession number: [id number] Bone Density: Region BMD T-score Z-score Classification AP Spine(L1-L4) 1.161 1.0 3.6 Normal Femoral Neck (Left) 0.723 -1.1 1.0 Osteopenia Total Hip (Left) 0.808 -1.1 0.8 Osteopenia Femoral Neck (Right) 0.784 -0.6 1.6 Normal Total Hip (Right) 0.927 -0.1 1.8 Normal Total Hip Mean 0.867 -0.6 1.3 Normal World Health Organization criteria for BMD impression classify patients as: Normal (T-score at or above -1.0), Osteopenia (T-score between -1.0 and -2.5), or Osteoporosis (T-score at or below -2.5). 10-year Fracture Risk: FRAX not reported because: Treated for osteoporosis Clinical Information Provided by Patient: Parent has had a hip fracture Has taken Glucocorticoids Is being treated for osteoporosis Has used the following medications: Actonel (i.e. risedronate), Vitamin D, Calcium Has the following medical conditions: Cancer Patient maximum height was 66 Menopause Age: 56 No regular weight bearing exercise Does not regularly consume dairy products Drinks caffeinated beverages Onset of menses at age 15 Number of children 2 Impression: The patient has low bone mass, based on the Left Total Hip T-score. The patient has risk factors, including: parental hip fracture, history of glucocorticoid therapy. Discussion: It is important to ask patients whether they are taking their medications and to encourage continued and appropriate compliance with their osteoporosis therapies to reduce fracture risk. It is also important to review their risk factors and encourage appropriate calcium and vitamin D intakes, exercise, fall prevention and other lifestyle measures. Follow-Up: Consider a repeat BMD and Vertebral Fracture Assessment (VFA) exam in 2 years or sooner if medically necessary, to reassess this patient's status. Reported by: ELVER on 06/17/2024 9:37:00 AM. Reviewed, dictated and finalized at location [facility] ULRICH
== END 2024-06-17 08:53 | disposition home or self-care (01) ==
LOC: ANHIMG 08:55
PROVIDERS: PCP Registered Nurse; Visit Provider Registered Nurse
DX: M81.0 Age-related osteoporosis without current pathological fracture (principal); M85.852 Other specified disorders of bone density and structure, left thigh
CPT/HCPCS: 77080

== ENCOUNTER 2024-07-18 08:20 | Emergency (ER) | payer OTHER, SELFPAY ==
[2024-07-18] VITALS (7 sets, daily range): BP systolic 134–157; BP diastolic 68–76; PULSE 61–69; RESP 15–27; TEMP 37.1; O2SAT 94–99
--- NOTE | ~2024-07-18 | XR_ITS ---
EXAMINATION: XR chest 1V portable 07/18/2024 08:42 INDICATION: Chest pain. History of stent placement. PROCEDURE: AP portable chest COMPARISON: 02/15/2024 FINDINGS: There is left basilar atelectasis. No focal pneumonia, edema or pneumothorax. No pleural ef fusion. The cardiomediastinal silhouette is within normal limits. There are no pleural effusions. T here is no pneumothorax suspected. There are symmetric degenerative changes of the glenohumeral join ts. IMPRESSION: 1: Left basilar atelectasis. Reviewed, dictated and finalized at location B.
--- NOTE | 2024-07-18 08:26 | ECG_ITS ---
Test Date: 2024-07-18 08:26:35 Measurements Intervals [place] Rate: 56 P: 29 ME: 139 QRS: -4 QRSD: 93 T: 61 QT: 408 QTc: 394 Interpretive Statements SINUS BRADYCARDIA NONSPECIFIC T-WAVE ABNORMALITY No previous ECG available for comparison Electronically Signed On 07-19-2024 14:18:19 CDT by Jeferson Guerrero M.D.
--- NOTE | 2024-07-18 08:26 | ED.CHESTPAIN ---
HPI - Chest Pain General Chief Complaint: Chest Pain Stated Complaint: CP Time Seen by Provider: 07/18/24 08:20 History of Present Illness HPI narrative: 79 Year old female presented emergency department for evaluation for episode of chest pain. Patient states this morning at approximately 7:00 a.m. she had onset of chest pain that did radiate to her back. Patient states pain lasted about 45 minutes. Patient did take a nitro at home and pain resolved. Upon arrival to the emergency department patient states she is pain free denies any chest pain, chest pressure or associated shortness of breath. Patient appears to be in no distress and has no complaints. Patient states she had a similar episode of chest pain and had a negative stress test in April. Patient does have a prior history of [place] does have a stent in her heart. Related Data Home Medications Medication Instructions Recorded Confirmed Caltrate 600 plus D 1 tablet PO BID 07/08/21 02/15/24 acetaminophen 500 mg tablet 1,000 mg PO Q12H 07/08/21 02/15/24 alendronate 70 mg tablet 70 mg PO WEEKLY 07/08/21 02/15/24 aspirin 81 mg tablet,delayed 81 mg PO DAILY 07/08/21 02/15/24 release (Ecotrin Low Strength) docusate sodium 100 mg capsule 100 mg PO HS 07/08/21 02/15/24 (Colace) ezetimibe 10 mg tablet 10 mg PO DAILY 07/08/21 02/15/24 fluticasone propionate 50 2 spray intranasal DAILY 07/08/21 02/15/24 mcg/actuation nasal spray,suspension [id number]-vit C-Mn 500 2 tablet PO DAILY 07/08/21 02/15/24 mg-400 mg-166.6 mg tablet loratadine 10 mg tablet (Allergy 10 mg PO DAILY 07/08/21 02/15/24 Relief (loratadine)) metoprolol succinate 25 mg 25 mg PO DAILY 07/08/21 02/15/24 tablet,extended release 24 hr (Toprol XL) multivitamin with minerals 1 tablet PO DAILY 07/08/21 02/15/24 potassium chloride 10 mEq 10 meq PO USEASDIRECTD 07/08/21 02/15/24 capsule,extended release simvastatin 40 mg tablet (Zocor) 40 mg PO HS 07/08/21 02/15/24 sumatriptan succinate 100 mg 100 mg PO Q2H PRN Migraine Headache 07/08/21 02/15/24 tablet (Imitrex) cetirizine 10 mg tablet 10 mg PO DAILY 02/15/24 02/15/24 oxybutynin chloride 5 mg tablet 5 mg PO BID 02/15/24 02/15/24 Allergies Allergy/AdvReac Type Severity Reaction Status Date / Time No Known Allergies Allergy Verified 07/08/21 16:55 Review of Systems Review of Systems: All systems reviewed & are unremarkable except as noted in HPI and below PMFSH Past Medical History Medical History (Updated 07/18/24 @ 12:07 by Urbano Casanova MD) Ambulates without assistive device gait disturbance secondary to polio. 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 No has plate and jaw. HLD (hyperlipidemia) HTN (hypertension) Kidney stones Migraines Osteoporosis Polio Shingles Surgical History Surgical History History of cataract removal with insertion of prosthetic lens History of cholecystectomy History of heart artery stent 2016, RCA History of right knee joint replacement 2004 Social History Social History Smoking status: Never smoker Alcohol intake: never Substance use: never Substance use type: does not use Do You Feel Safe in your Home?: Yes Lack of Transportation: No Lack of Food: Never True Current Housing: I Have Housing Concerned About Future Housing: No Difficulty Paying Gas/Electric Bills: No Difficulty Paying for Meds: No Currently Unemployed: No Education: Decline to Answer Difficulty w/ Childcare or Family Care: No Living arrangements: assisted living Additional living arrangements comments: LIVES W/ AT [facility] Gender identity (if verbalized by the patient): Female Spiritual care concerns: No Exam Narrative: APPEARANCE: Well appearing, no pain, no dis
[2024-07-18 08:53] LABS: Basophils Absolute Auto 0.1 K/mm3 (0.0-0.1); Basophils Percent Auto 0.5 % (0.2-1.2); Eosinophils Absolute Auto 0.1 K/mm3 (0-0.3); Eosinophils Percent Auto 1.2 % (0-4.4); Hematocrit 41.2 % (37.0-47.0); Hemoglobin 13.6 g/dL (12.0-15.0); Immature Granulocyte Absolute 0.03 K/mm3 (0.00-0.031); Immature Granulocyte Percent A 0.3 % (0-0.5); Lymphocytes Absolute Auto 2.33 K/mm3 (0.9-3.2); Mean Corpuscular Hemoglobin 33.1 pg (26-34); Mean Corpuscular Volume 100.2 fl (80-100); Mean Platelet Volume 11.5 fl (7.4-10.4); Monocytes Absolute Auto 0.7 K/mm3 (0.1-0.6); Monocytes Percent Auto 6.8 % (2.6-8.5); Neutrophils Absolute Auto 6.9 K/mm3 (1.3-6.7); Neutrophils Percent Auto 68.2 % (45.5-73.1); Platelet Count Result 227 k/mm3 (150-375); Red Blood Count 4.11 M/mm3 (4.2-5.4); Red Cell Distribution Width 12.7 % (11.5-14.5); White Blood Count 10.1 K/mm3 (4.5-10.0)
[2024-07-18 08:59] LABS: Alanine Aminotransferase 27 U/L (6-35); Albumin Level 4.1 g/dL (3.5-5.1); Alkaline Phosphatase 44 U/L (38-126); Anion Gap 6 mmol/L (4-12); Aspartate Amino Transferase 36 U/L (14-36); Bilirubin,Total 0.5 mg/dL (0.2-1.3); Blood Urea Nitrogen 18 mg/dL (7-17); Calcium 8.6 mg/dL (8.4-10.2); Carbon Dioxide 27 mmol/L (22-30); Chloride 107 mmol/L (98-107); Estimated CRCL calculation 82 ml/min; Estimated Glomerular Filt Rate > 60; Glucose 113 mg/dL (65-110); Potassium 3.9 mmol/L (3.4-5.0); Sodium 140 mmol/L (137-145)
[2024-07-18 09:00] LABS: Prothrombin Time 13.5 Seconds (11.1-14.7)
[2024-07-18 09:01] LABS: Partial Thromboplastin Time 26.9 Seconds (22.3-36.8)
[2024-07-18 09:12] LABS: Troponin I < 0.012 ng/mL (0.000-0.034)
--- NOTE | 2024-07-18 11:21 | ECG_ITS ---
Test Date: 2024-07-18 11:28:42 Measurements Intervals [place] Rate: 69 P: 56 PA: 145 QRS: -4 QRSD: 94 T: 79 QT: 390 QTc: 421 Interpretive Statements SINUS RHYTHM NONSPECIFIC ST & T-WAVE ABNORMALITY Compared to ECG 07/18/2024 08:26:35 Sinus bradycardia no longer present T-wave abnormality still present Electronically Signed On 07-19-2024 14:23:04 CDT by Jeferson Guerrero M.D.
[2024-07-18 11:54] LABS: Troponin I < 0.012 ng/mL (0.000-0.034)
== END 2024-07-18 12:25 | disposition home or self-care (01) ==
PROVIDERS: Emergency Provider Emergency Medicine
DX: R07.9 Chest pain, unspecified (principal); I25.2 Old myocardial infarction; I25.10 Atherosclerotic heart disease of native coronary artery without angina pectoris; I10 Essential (primary) hypertension; E78.5 Hyperlipidemia, unspecified; M19.90 Unspecified osteoarthritis, unspecified site; M81.0 Age-related osteoporosis without current pathological fracture; Z96.651 Presence of right artificial knee joint; Z95.5 Presence of coronary angioplasty implant and graft; Z87.442 Personal history of urinary calculi; Z86.12 Personal history of poliomyelitis; Z96.1 Presence of intraocular lens; Z98.49 Cataract extraction status, unspecified eye; Z90.49 Acquired absence of other specified parts of digestive tract; Z79.899 Other long term (current) drug therapy; Z79.82 Long term (current) use of aspirin; R00.1 Bradycardia, unspecified; R94.31 Abnormal electrocardiogram [ECG] [EKG]
CPT/HCPCS: 36415; 71045; 80053; 84484; 85025; 85610; 85730; 93005; 99284